=== PATIENT | male | born 1955 | race Caucasian/White ===

== ENCOUNTER 2025-06-09 18:21 | Inpatient (IN) | payer MEDICARE ==
[~2025-06-09] VITALS: Ht 175.2 cm; Wt 59.1 kg
[2025-06-09] MEDS ORDERED: ACETAMINOPHEN 325 MG TAB PO PRN (19:45)
[2025-06-09] MEDS ORDERED: MG-AL HYDROXIDE/SIMETICONE 30 ML UDC PO PRN (19:45)
[2025-06-09] MEDS ORDERED: Menthol/Zinc Oxide 4 GM THIN T PRN (19:50)
[2025-06-09] MEDS ORDERED: LORazepam 1 MG TAB PO PRN (19:55)
[2025-06-09] MEDS ORDERED: hydrOXYzine hydrochloride 50 MG/ML VIAL IM PRN (19:55)
[2025-06-09] MEDS ORDERED: VENLAFAXINE37.5 M1 PO (19:56)
[2025-06-09] MEDS ORDERED: RIVASTIGMINE TAR3 M1 PO (19:57)
[2025-06-09] MEDS ORDERED: MULTI-VITAMIN1 EACH PO (19:58)
[2025-06-09] MEDS ORDERED: GOOD SENSE ALLE10 M2 PO (19:59)
[2025-06-09] MEDS ORDERED: LEVOTHYROXINE100 MC1 PO (19:59)
[2025-06-09] MEDS ORDERED: DEPAKOTE125 M1 PO (20:02)
[2025-06-09] MEDS ORDERED: PRAZOSIN HCL2 MG PO (20:02)
[2025-06-09] MEDS ORDERED: DICLOFENAC SODI75 M2 PO (20:04)
[2025-06-09] MEDS ORDERED: TRAZODONE150 MG PO (20:05)
[2025-06-09] MEDS ORDERED: TRAMADOL HCL50 MG PO (20:05)
[2025-06-09] MEDS ORDERED: MYLANTA TONIGH355 ML PO (20:06)
[2025-06-09] MEDS ORDERED: GUAIFENESIN DM PO (20:08)
[2025-06-09] MEDS ORDERED: COUGH DROPS1 EAC1 PO (20:09)
[2025-06-09] MEDS ORDERED: ARTIFICIAL TEAR1514 OU (20:10)
[2025-06-09] MEDS ORDERED: FAST RELIEF LAX10 MG R (20:11)
[2025-06-09] MEDS ORDERED: FLEET ENEMA 13133 ML R (20:13)
[2025-06-09] MEDS ORDERED: PINK BISMUTH262 MG PO (20:14)
[2025-06-09 20:32] VITALS: BP 103/77
[2025-06-09] MEDS ORDERED: Prazosin Hydrochloride 1 MG CAP PO SCH (21:00)
[2025-06-09] MEDS ORDERED: DIVALPROEX SODIUM 125 MG TAB PO SCH (21:00)
[2025-06-09] MEDS ORDERED: Glycerin/Hypromellose/Polyet 300 DRP BOT OPH PRN (22:15)
[2025-06-10 06:45] LABS: BASO # 0.0 10*3/uL (0.0-0.1); BASO % 0.3 % (0.0-1.0); EOS # 0.2 10*3/uL (0.0-0.4); EOS % 3.3 % (1.0-4.0); MEAN CELL VOLUME 92.0 fl (80.0-94.0); MEAN CORPUSCULAR HGB 29.8 pg (27.0-31.0); MEAN PLATELET VOLUME 10.2 fl (9.6-12.3); MONO # 0.6 10*3/uL (0.1-1.0); MONO % 9.6 % (3.0-9.0); NEUT # 4.1 10*3/uL (2.3-7.9); NEUT % 61.2 % (47.0-73.0); NUCLEATED RED BLOOD CELL 0.0 % (0.0-0.0); NUCLEATED RED BLOOD CELL 0.0 10*3/uL (0.0-0.0); PLATELET COUNT AUTOMATED 181 10*3/uL (130-400); RED CELL DISTRI WIDTH 13.9 % (0-14.5)
[2025-06-10 07:14] LABS: BUN 8 mg/dl (9-23); LDL CHOLESTEROL 88 mg/dL (9-159); SGPT/ALT 11 U/L (5-49); VALPROIC ACID (DEPAKENE) 48.3 ug/ml (50-100)
[2025-06-10 07:43] LABS: VITAMIN D, 25-HYDROXY 46.7 ng/mL (30-100)
[2025-06-10 08:00] VITALS: BP 155/61
[2025-06-10] MEDS ORDERED: MULTIVITAMIN 1 TAB TAB PO SCH (09:00)
[2025-06-10] MEDS ORDERED: Venlafaxine Hydrochloride 37.5 MG CAP PO SCH (09:00)
[2025-06-10] MEDS ORDERED: Memantine Hydrochloride 5 MG TAB PO SCH (21:00)
[2025-06-11 08:00] VITALS: BP 139/94
[2025-06-11 09:05] VITALS: BP 139/94
[2025-06-11 20:00] VITALS: BP 99/61
[2025-06-11] MEDS ORDERED: Memantine Hydrochloride 5 MG TAB PO SCH (21:00)
[2025-06-12 08:14] VITALS: BP 134/58
[2025-06-12 15:32] LABS: BILIRUBIN Negative (Negative); BLOOD 2+ (Negative); CLARITY Clear (Clear); COLOR Dark Yellow (Yellow); KETONE 2+ (Negative); LEUKO ESTERASE Negative (Negative); NITRITE Negative (Negative); PH 6.0 (4.5-8.0); SPECIFIC GRAVITY 1.025 (1.001-1.030); UROBILINOGEN 1.0 E.U./dl (0.0-1.0)
[2025-06-12 15:44] LABS: BACTERIA TRACE; MUCOUS 2+; RBC 21-30 rbc/hpf (0-2)
[2025-06-12 20:00] VITALS: BP 94/62
[2025-06-13 09:32] VITALS: BP 97/59
[2025-06-13 20:00] VITALS: BP 92/58
[2025-06-14 08:00] VITALS: BP 115/75
[2025-06-14] MEDS ORDERED: DIVALPROEX (DR) 500 MG TAB PO SCH (09:00)
[2025-06-14 20:00] VITALS: BP 110/68
[2025-06-15 08:34] VITALS: BP 91/61
[2025-06-15 20:00] VITALS: BP 100/54
[2025-06-16 08:00] VITALS: BP 126/69
[2025-06-16 20:00] VITALS: BP 111/58
[2025-06-17 06:16] LABS: BASO # 0.0 10*3/uL (0.0-0.1); BASO % 0.4 % (0.0-1.0); EOS # 0.1 10*3/uL (0.0-0.4); EOS % 1.3 % (1.0-4.0); MEAN CELL VOLUME 91.2 fl (80.0-94.0); MEAN CORPUSCULAR HGB 30.3 pg (27.0-31.0); MEAN PLATELET VOLUME 10.7 fl (9.6-12.3); MONO # 0.9 10*3/uL (0.1-1.0); MONO % 9.4 % (3.0-9.0); NEUT # 7.1 10*3/uL (2.3-7.9); NEUT % 74.6 % (47.0-73.0); NUCLEATED RED BLOOD CELL 0.0 % (0.0-0.0); NUCLEATED RED BLOOD CELL 0.0 10*3/uL (0.0-0.0); PLATELET COUNT AUTOMATED 223 10*3/uL (130-400); RED CELL DISTRI WIDTH 13.3 % (0-14.5)
[2025-06-17 06:51] LABS: BUN 16 mg/dl (9-23); SGPT/ALT 10 U/L (5-49); VALPROIC ACID (DEPAKENE) 90.0 ug/ml (50-100)
[2025-06-17 09:36] VITALS: BP 102/59
[2025-06-17] MEDS ORDERED: LEVOTHYROXINE112 MC1 PO (09:54)
[2025-06-17] MEDS ORDERED: MEMANTINE HCL10 MG PO (11:48)
[2025-06-17] MEDS ORDERED: DEPAKOTE125 M1 PO (11:48)
[2025-06-17] MEDS ORDERED: MINIPRESS2 M1 PO (11:48)
[2025-06-17] MEDS ORDERED: RIVASTIGMINE TAR3 M1 PO (11:48)
[2025-06-17] MEDS ORDERED: DIVALPROEX SODIUM 125 MG CAP PO SCH (13:00)
== END 2025-06-17 14:30 | DRG 883 ==
LOC: 3N 18:21
PROVIDERS: Counselor Professional; ADMIT Psychiatry & Neurology Psychiatry; ATTEND Psychiatry & Neurology Psychiatry
PROC: 0HBRXZZ Excision of Toe Nail, External Approach (ICD-10-PCS; 2025-06-10)
PROC: 0HBRXZZ Excision of Toe Nail, External Approach (ICD-10-PCS; 2025-06-10)
PROC: 0HBRXZZ Excision of Toe Nail, External Approach (ICD-10-PCS; 2025-06-10)
PROC: 0HBRXZZ Excision of Toe Nail, External Approach (ICD-10-PCS; 2025-06-10)
PROC: 0HBRXZZ Excision of Toe Nail, External Approach (ICD-10-PCS; 2025-06-10)
PROC: 0HBRXZZ Excision of Toe Nail, External Approach (ICD-10-PCS; 2025-06-10)
PROC: 0HBRXZZ Excision of Toe Nail, External Approach (ICD-10-PCS; 2025-06-10)
PROC: 0HBRXZZ Excision of Toe Nail, External Approach (ICD-10-PCS; 2025-06-10)
PROC: 0HBRXZZ Excision of Toe Nail, External Approach (ICD-10-PCS; 2025-06-10)
PROC: 0HBRXZZ Excision of Toe Nail, External Approach (ICD-10-PCS; 2025-06-10)
PROC: GZHZZZZ Group Psychotherapy (ICD-10-PCS; principal; 2025-06-11)
DX: F63.81 Intermittent explosive disorder (principal); E43 Unspecified severe protein-calorie malnutrition; F02.811 Dementia in other diseases classified elsewhere, unspecified severity, with agitation; F33.1 Major depressive disorder, recurrent, moderate; Z68.1 Body mass index [BMI] 19.9 or less, adult; G30.9 Alzheimer's disease, unspecified; F43.10 Post-traumatic stress disorder, unspecified; D64.9 Anemia, unspecified; E03.9 Hypothyroidism, unspecified; R60.0 Localized edema; B35.1 Tinea unguium; L60.2 Onychogryphosis; Z79.899 Other long term (current) drug therapy